=== PATIENT | male | born 1975 | race Caucasian/White ===

== ENCOUNTER 2021-03-14 10:40 | Outpatient (REF) | payer OTHER, SELFPAY ==
[2021-03-14 10:51] LABS: MANUAL DIFF FLAG NO
[2021-03-14 11:16] LABS: Basophils Percent Auto 0.4 % (0-2); Eosinophils Absolute Auto 0.1 X10*3/uL (0.0-0.4); Eosinophils Percent Auto 1.6 % (0-4); Hemoglobin 14.6 g/dl (14.0-18.0); Imm Gran Abs Auto 0.01 X10*3/uL (0.00-0.03); Imm Gran Pct Auto 0.2 % (0.0-0.4); Lymphocytes Absolute Auto 1.7 X10*3/uL (1.2-4.9); Lymphocytes Percent Auto 30.5 % (20-40); Mean Corpuscular Hemoglobin 29.8 pg (27.0-33.0); Mean Corpuscular Volume 87.8 fL (80-98); Mean Platelet Volume 10.7 fL (9.4-12.4); Monocytes Absolute Auto 0.4 X10*3/uL (0.1-1.2); Monocytes Percent Auto 6.3 % (2-11); Neutrophils Absolute Auto 3.4 X10*3/uL (2.0-8.3); Platelet Count 241 X10*3/uL (160-400); Red Cell Distribution Width 12.4 % (11.0-16.0); White Blood Count 5.5 X10*3/uL (4.8-10.8)
[2021-03-14 11:21] LABS: Glucose Urine UA NEG (NEG); Leukocyte Esterase Urine NEG (NEG); Nitrite Urine NEG (NEG); Urine Blood NEG (NEG); Urine Ketones NEG (NEG); Urine Protein NEG (NEG-TRACE)
[2021-03-14 11:22] LABS: Appearance Urine CLEAR; Color Urine YELLOW
[2021-03-14 12:10] LABS: Alanine Aminotransferase 12 U/L (0-40); Albumin Level 4.5 g/dL (3.5-5.0); Alkaline Phosphatase 51 U/L (39-117); Anion Gap 12 (12-20); Aspartate Amino Transferase 21 U/L (5-37); Bilirubin Total 1.5 mg/dL (0.0-1.0); Blood Urea Nitrogen 24 mg/dL (9-16); Calcium 9.2 mg/dL (8.4-10.2); Carbon Dioxide 27 mmol/L (22-29); Chloride 105 mmol/L (96-108); Cholesterol 170 mg/dL; Estimated Glomerular Filt Rate > 60; Glucose Fasting 90 mg/dL (60-99); HDL Cholesterol 45 mg/dL; LDL Cholesterol Calculated 111 mg/dl; Potassium 3.8 mmol/L (3.3-5.1); Sodium 140 mmol/L (135-145); Triglycerides 71 mg/dL
[2021-03-14 12:12] LABS: PSA,Total (Free>4and<10) 0.25 ng/mL (0.00-4.00)
== END 2021-03-14 10:41 | disposition home or self-care (01) ==
LOC: HO.LNP 10:40
PROVIDERS: PCP Internal Medicine; Visit Provider Internal Medicine
DX: Z00.00 Encounter for general adult medical examination without abnormal findings (principal); Z12.5 Encounter for screening for malignant neoplasm of prostate
CPT/HCPCS: 80053; 80061; 81003; 84153; 85025

== ENCOUNTER 2021-09-22 10:33 | Outpatient (REF) | payer OTHER, SELFPAY ==
[2021-09-22 11:11] LABS: Blood Urea Nitrogen 24 mg/dL (9-16); Estimated Glomerular Filt Rate > 60
== END 2021-09-22 10:34 | disposition home or self-care (01) ==
LOC: HO.LNP 10:33
PROVIDERS: Visit Provider Internal Medicine
DX: R79.9 Abnormal finding of blood chemistry, unspecified (principal)
CPT/HCPCS: 82565; 84520

== ENCOUNTER 2022-03-20 11:48 | Outpatient (REF) | payer OTHER, SELFPAY ==
[2022-03-20 11:52] LABS: MANUAL DIFF FLAG NO
[2022-03-20 12:09] LABS: Appearance Urine CLEAR; Basophils Absolute Auto 0.1 X10*3/uL (0.0-0.2); Basophils Percent Auto 0.9 % (0-2); Color Urine YELLOW; Eosinophils Absolute Auto 0.1 X10*3/uL (0.0-0.4); Eosinophils Percent Auto 1.6 % (0-4); Glucose Urine UA NEG (NEG); Hematocrit 41.8 % (42.0-52.0); Hemoglobin 14.1 g/dl (14.0-18.0); Imm Gran Abs Auto 0.01 X10*3/uL (0.00-0.03); Imm Gran Pct Auto 0.2 % (0.0-0.4); Leukocyte Esterase Urine NEG (NEG); Lymphocytes Absolute Auto 1.9 X10*3/uL (1.2-4.9); Lymphocytes Percent Auto 34.5 % (20-40); Mean Corpuscular HGB Conc 33.7 g/dl (31.0-36.0); Mean Corpuscular Hemoglobin 29.5 pg (27.0-33.0); Mean Corpuscular Volume 87.4 fL (80.0-98.0); Mean Platelet Volume 10.7 fL (9.4-12.4); Monocytes Absolute Auto 0.5 X10*3/uL (0.1-1.2); Monocytes Percent Auto 8.6 % (2-11); Neutrophils Percent Auto 54.2 % (45-73); Nitrite Urine NEG (NEG); PH 6.5 (5.0-8.0); Platelet Count 240 X10*3/uL (160-400); Red Blood Count 4.78 X10*6/uL (4.60-5.80); Red Cell Distribution Width 12.7 % (11.0-16.0); Urine Blood NEG (NEG); Urine Ketones NEG (NEG); Urine Protein NEG (NEG-TRACE); White Blood Count 5.5 X10*3/uL (4.8-10.8)
[2022-03-20 12:41] LABS: RBC Urine 0 /HPF (0); Squamous Epithelial Cell Urine TRACE /LPF; WBC Urine 0 /HPF (0-4)
[2022-03-20 12:56] LABS: Alanine Aminotransferase 16 U/L (0-40); Albumin Level 4.4 g/dL (3.5-5.0); Alkaline Phosphatase 58 U/L (39-117); Anion Gap 11 (12-20); Aspartate Amino Transferase 21 U/L (5-37); Bilirubin Total 1.1 mg/dL (0.0-1.0); Blood Urea Nitrogen 24 mg/dL (9-16); Calcium 8.9 mg/dL (8.4-10.2); Carbon Dioxide 27 mmol/L (22-29); Chloride 108 mmol/L (96-108); Cholesterol 149 mg/dL; Estimated Glomerular Filt Rate > 60; Glucose Fasting 102 mg/dL (60-99); HDL Cholesterol 43 mg/dL; LDL Cholesterol Calculated 84 mg/dl; Potassium 3.7 mmol/L (3.3-5.1); Sodium 142 mmol/L (135-145); Total Protein 6.8 g/dL (6.5-8.0); Triglycerides 110 mg/dL
[2022-03-20 13:02] LABS: PSA,Total (Free>4and<10) 0.27 ng/mL (0.00-4.00)
== END 2022-03-20 11:49 | disposition home or self-care (01) ==
LOC: HO.LNP 11:48
PROVIDERS: PCP Internal Medicine; Visit Provider Internal Medicine
DX: Z00.00 Encounter for general adult medical examination without abnormal findings (principal); Z12.5 Encounter for screening for malignant neoplasm of prostate
CPT/HCPCS: 80053; 80061; 81001; 84153; 85025

== ENCOUNTER 2023-03-15 11:49 | Outpatient (REF) | payer OTHER, SELFPAY ==
[2023-03-15 11:53] LABS: MANUAL DIFF FLAG NO
[2023-03-15 12:09] LABS: Basophils Percent Auto 0.7 % (0-2); Eosinophils Absolute Auto 0.1 X10*3/uL (0.0-0.4); Eosinophils Percent Auto 1.2 % (0-4); Hemoglobin 15.2 g/dl (14.0-18.0); Imm Gran Abs Auto 0.01 X10*3/uL (0.00-0.03); Imm Gran Pct Auto 0.2 % (0.0-0.4); Lymphocytes Absolute Auto 1.8 X10*3/uL (1.2-4.9); Lymphocytes Percent Auto 31.2 % (20-40); Mean Corpuscular HGB Conc 33.8 g/dl (31.0-36.0); Mean Corpuscular Hemoglobin 29.3 pg (27.0-33.0); Mean Corpuscular Volume 86.9 fL (80.0-98.0); Mean Platelet Volume 10.6 fL (9.4-12.4); Monocytes Absolute Auto 0.4 X10*3/uL (0.1-1.2); Monocytes Percent Auto 6.9 % (2-11); Neutrophils Absolute Auto 3.4 x10*3/uL (2.0-8.3); Neutrophils Percent Auto 59.8 % (45-73); Platelet Count 242 X10*3/uL (160-400); Red Blood Count 5.18 X10*6/uL (4.60-5.80); Red Cell Distribution Width 12.6 % (11.0-16.0); White Blood Count 5.7 X10*3/uL (4.8-10.8)
[2023-03-15 12:11] LABS: Appearance Urine Clear; Color Urine Yellow; Glucose Urine UA Negative (Negative); Leukocyte Esterase Urine Negative (Negative); Nitrite Urine Negative (Negative); PH 6.5 (5.0-9.0); Specific Gravity - Urine 1.025 (1.005-1.025); Urine Blood Negative (Negative); Urine Ketones Negative (Negative); Urine Protein Negative (Neg-Trace)
[2023-03-15 12:13] LABS: Bacteria Urine None Seen (None Seen); Hyaline Casts Urine 0-2 /LPF (0-2); RBC Urine 0-2 /HPF (0-2); Squamous Epithelial Cell Urine 0-2 /HPF (0-2); WBC Urine 0-5 /HPF (0-5)
[2023-03-15 12:20] LABS: Alanine Aminotransferase 14 U/L (0-40); Albumin Level 4.4 g/dL (3.5-5.0); Alkaline Phosphatase 57 U/L (39-117); Anion Gap 10 (12-20); Aspartate Amino Transferase 18 U/L (5-37); Bilirubin Total 1.5 mg/dL (0.0-1.0); Blood Urea Nitrogen 24 mg/dL (9-16); Calcium 9.8 mg/dL (8.4-10.2); Carbon Dioxide 29 mmol/L (22-29); Chloride 108 mmol/L (96-108); Cholesterol 170 mg/dL; Estimated Glomerular Filt Rate > 60; Glucose Fasting 95 mg/dL (60-99); HDL Cholesterol 44 mg/dL; LDL Cholesterol Calculated 107 mg/dl; Sodium 143 mmol/L (135-145); Total Protein 6.8 g/dL (6.5-8.0); Triglycerides 95 mg/dL
== END 2023-03-15 11:50 | disposition home or self-care (01) ==
LOC: HO.LNP 11:49
PROVIDERS: Visit Provider Internal Medicine
DX: Z00.00 Encounter for general adult medical examination without abnormal findings (principal); Z12.5 Encounter for screening for malignant neoplasm of prostate
CPT/HCPCS: 80053; 80061; 81001; 84153; 85025

== ENCOUNTER 2023-04-24 08:48 | Outpatient (REF) | payer OTHER, SELFPAY ==
--- NOTE | ~2023-04-24 | XR_ITS ---
EXAMINATION: XR LUMBOSACRAL SPINE CLINICAL INFORMATION: Degenerative disc changes. COMPARISON: None available. TECHNIQUE: Three views of the lumbosacral spine. FINDINGS: There is normal lumbar lordosis. There is mild levoscoliosis of the lumbar spine. The vertebral heights, alignment and disc heights are normal. No visible acute fracture, lytic or sclerotic process seen. The soft tissues are normal. XR/XR lumbar spine 2-3V IMPRESSION: Mild levoscoliosis which could be positional or spasm, otherwise unremarkable lumbar spine exam.
== END 2023-04-24 08:49 | disposition home or self-care (01) ==
LOC: HO.XRAY 08:48
PROVIDERS: PCP Internal Medicine; Visit Provider Physical Medicine & Rehabilitation
DX: M51.36 Other intervertebral disc degeneration, lumbar region (principal)
CPT/HCPCS: 72100

== ENCOUNTER 2023-08-29 11:08 | Outpatient (REF) | payer OTHER, SELFPAY ==
--- NOTE | ~2023-08-29 | US_ITS ---
EXAMINATION: US VENOUS ULTRASOUND WITH DOPPLER LOWER EXTREMITY, BILATERAL CLINICAL INFORMATION: Edema COMPARISON: None available. TECHNIQUE: Ultrasound of the deep veins is performed from the hip to the calf with compression sonography and color and pulse Doppler assessment. Spectral analysis with color-flow imaging is performed. FINDINGS: RIGHT: There is normal venous compression and respiratory variation and augmented flow. The visualized common femoral vein, superficial femoral vein, profunda femoral vein, popliteal vein, and the trifurcation region shows no evidence of deep venous thrombosis. LEFT: There is normal venous compression and respiratory variation and augmented flow. The visualized common femoral vein, superficial femoral vein, profunda femoral vein, popliteal vein, and the trifurcation region shows no evidence of deep venous thrombosis. Multiple varicosities are seen bilaterally at the area of swelling in the ankles. Vascular flow is noted within the varicosities. No reflux seen. 3.4 x 0.9 x 2.4 cm benign-appearing lymph node is seen in the right groin. US/US venous duplex LE BI IMPRESSION: No DVT demonstrated in the right and left lower extremity.
[2023-08-29 14:34] LABS: Blood Urea Nitrogen 21 mg/dL (9-16); Estimated Glomerular Filt Rate > 60
== END 2023-08-29 11:09 | disposition home or self-care (01) ==
LOC: HO.US 11:08
PROVIDERS: PCP Internal Medicine; Visit Provider Internal Medicine
DX: R60.0 Localized edema (principal)
CPT/HCPCS: 36415; 82565; 84520; 93970

== ENCOUNTER → 2023-10-17 15:41 | Outpatient (BNVA) | payer SELFPAY | PROVIDERS: PCP Internal Medicine; Visit Provider Physician Assistant | DX: Z02.79 Encounter for issue of other medical certificate (principal) ==

== ENCOUNTER 2023-12-18 04:38 | Emergency (ER) | payer OTHER, SELFPAY ==
--- NOTE | ~2023-12-18 | XR_ITS ---
EXAMINATION: XR ABDOMEN KUB CLINICAL INDICATION: Abdominal pain COMPARISON: None available. TECHNIQUE: AP view of the abdomen. FINDINGS: Nonspecific bowel pattern with few prominent right mid abdominal small bowel loops. Solid visceral outlines are obscured. 2 cm calcific density in the right upper quadrant likely gallstone. Phleboliths. Bony structures are intact. XR/XR KUB IMPRESSION: Nonspecific bowel pattern. Probable 2 cm gallstone.
[2023-12-18 04:45] VITALS: BP 110/78; PULSE 65; RESP 20; TEMP 36.2; O2SAT 95; BMI 31.9
[2023-12-18 05:10] LABS: MANUAL DIFF FLAG NO
[2023-12-18 05:11] LABS: Basophils Percent Auto 0.4 % (0-2); Eosinophils Absolute Auto 0.1 X10*3/uL (0.0-0.4); Hemoglobin 14.9 g/dl (14.0-18.0); Imm Gran Abs Auto 0.03 X10*3/uL (0.00-0.03); Imm Gran Pct Auto 0.4 % (0.0-0.4); Lymphocytes Absolute Auto 1.2 X10*3/uL (1.2-4.9); Lymphocytes Percent Auto 15.4 % (20-40); Mean Corpuscular HGB Conc 34.7 g/dl (31.0-36.0); Mean Corpuscular Hemoglobin 29.2 pg (27.0-33.0); Mean Corpuscular Volume 84.3 fL (80.0-98.0); Monocytes Absolute Auto 0.4 X10*3/uL (0.1-1.2); Monocytes Percent Auto 5.8 % (2-11); Neutrophils Absolute Auto 5.9 x10*3/uL (2.0-8.3); Platelet Count 238 X10*3/uL (160-400); Red Cell Distribution Width 12.7 % (11.0-16.0); White Blood Count 7.6 X10*3/uL (4.8-10.8)
[2023-12-18 05:24] LABS: Alanine Aminotransferase 18 U/L (0-40); Albumin Level 4.2 g/dL (3.5-5.0); Alkaline Phosphatase 67 U/L (39-117); Anion Gap 11 (12-20); Aspartate Amino Transferase 19 U/L (5-37); Bilirubin Direct 0.2 mg/dL (0.0-0.5); Bilirubin Total 0.8 mg/dL (0.0-1.0); Blood Urea Nitrogen 25 mg/dL (9-16); Calcium 9.4 mg/dL (8.4-10.2); Carbon Dioxide 25 mmol/L (22-29); Chloride 109 mmol/L (96-108); Creatinine Clr Calc Pharmacy 108.2; Estimated Glomerular Filt Rate > 60; Glucose Random 129 mg/dL (60-115); Lipase 23 U/L (8-78); Potassium 3.9 mmol/L (3.3-5.1); Sodium 141 mmol/L (135-145)
--- NOTE | 2023-12-18 08:11 | ED_ITS ---
HPI - Abdominal Pain General Chief Complaint: Abdominal Pain Stated Complaint: stomach pain Time Seen by Provider: 12/18/23 08:10 Source: patient Mode of arrival: ambulatory Limitations: no limitations History of Present Illness HPI narrative: last night the patient had abdominal pain that was unrelieved, denies fever, vomiting, diarrhea, constipation, dysuria MD elicited complaint: abdominal pain Onset (ago): hour(s) Pain Consistency: constant Location: diffuse Related Data Previous Rx's Medication Instructions Recorded psyllium seed (sugar) oral powder 1 tsp PO DAILY #1,254 grams 12/18/23 (Metamucil (sugar) oral powder) Allergies Allergy/AdvReac Type Severity Reaction Status Date / Time No Known Allergies Allergy Verified 12/18/23 04:51 Review of Systems Review of Systems Yes all other systems are reviewed and are negative Denies Sensory deficit (Neuro) [facility] Social History Social History Advance Directives: Yes Advance Directives Information Provided: No Advance Directives on File: No Physical Exam ED Vital Signs: Vital Signs - 24 hr 12/18/23 04:45 12/18/23 08:45 Temperature 97.2 F Pulse Rate 65 60 Respiratory Rate 20 14 Blood Pressure 110/78 110/64 Pulse Oximetry 95 97 Oxygen Delivery Method Room Air Room Air BMI result Body Mass Index 31.9 Const General: healthy appearing Nutritional Appearance: average body habitus Orientation/consciousness: oriented to person and patient oriented x3 Limitations: no limitations HENMT Head: Yes normal to inspection Ears: external ears normal General nose exam: Normal external nose present Mouth: Normal oral and palatal mucosa present and oropharynx normal Throat: Yes posterior oropharynx normal Eyes General: appearance normal, both eyes and all related structures Neck Neck: Yes normal visual inspection Chest Chest palpation & inspection: normal inspection of the chest Resp Auscultation: clear to auscultation bilaterally Cardio Jugular venous distension: no JVD Rate: regular rate Rhythm: regular rhythm Heart sounds: S1 normal heart sound present and S2 normal heart sound present GI Inspection: Yes normal to inspection Palpation (GI): Soft to palpation, nontender and No hepatosplenomegaly present Auscultation: normal bowel sounds General: Yes no CVA tenderness Back/Spine/Pelvis Back: no CVA tenderness Skin General skin exam: no rashes or lesions noted Neuro General: oriented to person and patient oriented x3 Cranial nerves: Yes CN's II-XII intact bilaterally Motor exam (neuro): 5/5 motor strength present throughout Sensory Exam: No Sensory deficit (Neuro) Extrem General: Yes normal to inspection Psych Appearance: grossly normal Course Reevaluation(s) Reevaluation #1: patient with soft abdomen, xray shows significant stool burden, will dc home Time: 08:46 Medical Decision Making Differential Diagnosis Differential Diagnoses: The differential diagnosis associated with the presentation includes (appendicitis, biliary colic, GERD, constipation were all considered) Admission/Observation Consideration of admission/observation: Escalation of care including admission/observation considered (upon arrival admission was considered) Lab Data 12/18/23 05:05 12/18/23 05:05 Labs: Lab Results 12/18/23 12/18/23 Range/Units 05:05 09:06 WBC 7.6 (4.8-10.8) X10*3/uL RBC 5.10 (4.60-5.80) X10*6/uL Hgb 14.9 (14.0-18.0) g/dl Hct 43.0 (42.0-52.0) % MCV 84.3 (80.0-98.0) fL MCH 29.2 (27.0-33.0) pg MCHC 34.7 (31.0-36.0) g/dl RDW 12.7 (11.0-16.0) % Plt Count 238 (160-400) X10*3/uL MPV 10.0 (9.4-12.4) fL Immature Gran % (Auto) 0.4 (0.0-0.4) % Neut % (Auto) 77.0 H (45-73) % Lymph % (Auto) 15.4 L (20-40) % [place] % (Auto) 5.8 (2-11) % Eos % (Auto) 1.0 (0-4) % Baso % (Auto) 0.4 (0-2) % Lymph # (Auto) 1.2 (1.2-4.9) X10*3/uL [place] # (Auto) 0.4 (0.1-1.2) X10*3/uL Eos # (Auto) 0.1 (0.0-0.4) X10*3/uL Baso # (Auto) 0.0 (0.0-0.2) X10*3/uL Abs Immat Gran (auto) 0.03 (0.00-0.03) X10*3/uL Absolute Neuts (auto) 5.9 (2.0-8.3) x10*3/uL Absolute Nucleated RBC 0.000 (0.0-0.012) X10*3/uL Nucleated RBC % (auto) 0.0 (0.0-0.2) /100WBC Sodium 141 (135-145) mmol/L Potassium 3.9 (3.3-5.1) mmol/L Chloride 109 H (96-108) mmol/L Carbon Dioxide 25 (22-29) mmol/L Anion Gap 11 L (12-20) BUN 25 H (9-16) mg/dL Creatinine 1.12 (0.5-1.4) mg/dL Estim Creat Clear Calc 108.2 Estimated GFR > 60 Random Glucose 129 H (60-115) mg/dL Calcium 9.4 (8.4-10.2) mg/dL Total Bilirubin 0.8 (0.0-1.0) mg/dL Direct Bilirubin 0.2 (0.0-0.5) mg/dL AST 19 (5-37) U/L ALT 18 (0-40) U/L Alkaline Phosphatase 67 (39-117) U/L Total Protein 7.0 (6.5-8.0) g/dL Albumin 4.2 (3.5-5.0) g/dL Lipase 23 (8-78) U/L Urine Color Yellow Urine Appearance Clear Urine pH 6.5 (5.0-9.0) Ur Specific [place] >= 1.030 H (1.005-1.025) Urine Protein Negative (Neg-Trace) mg/dL Urine Glucose (UA) Negative (Negative) mg/dL Urine Ketones Negative (Negative) mg/dL Urine Blood Negative (Negative) Urine Nitrite Negative (Negative) Ur Leukocyte Esterase Negative (Negative) Independent Interpretation I performed an independent interpretation of an: Plain X-Ray (KUB: increased stool burden) Tests considered The following testing was considered but not selected: CT of abd considered but patient with soft abdomen and no elevated WBC Prescription Management I considered prescription management with: Antibiotic (no evidence of UTI) Discharge Plan Discharge Clinical Impression: Constipation Patient Disposition: Home, Self-Care Instructions: Constipation (ED) Prescriptions: New Metamucil (sugar) Powder 1 tsp PO DAILY Qty: 1254 0RF
[2023-12-18 08:45] VITALS: BP 110/64; PULSE 60; RESP 14; O2SAT 97
[2023-12-18 09:14] LABS: Appearance Urine Clear; Color Urine Yellow; Glucose Urine UA Negative (Negative); Leukocyte Esterase Urine Negative (Negative); Nitrite Urine Negative (Negative); PH 6.5 (5.0-9.0); Specific Gravity - Urine >= 1.030 (1.005-1.025); Urine Blood Negative (Negative); Urine Ketones Negative (Negative); Urine Protein Negative (Neg-Trace)
[2023-12-18 10:32] VITALS: BP 143/71; PULSE 76; RESP 18; O2SAT 98
[2023-12-18 10:35] VITALS: BP 143/71; PULSE 76; RESP 18; TEMP 36.6; O2SAT 98
== END 2023-12-18 10:36 | disposition home or self-care (01) ==
PROVIDERS: Emergency Provider Emergency Medicine; PCP Internal Medicine
DX: K59.00 Constipation, unspecified (principal)
CPT/HCPCS: 36415; 74018; 80048; 80076; 81003; 83690; 85025; 99283; 99284

== ENCOUNTER 2024-03-03 20:51 | Emergency (ER) | payer OTHER, SELFPAY ==
--- NOTE | 2024-03-03 | ECG_ITS ---
Test Reason : ABD PAIN Blood Pressure : / mmHG Vent. Rate : 053 BPM Atrial Rate : 053 BPM P-R Int : 136 ms QRS Dur : 102 ms QT Int : 416 ms P-R-T Axes : -06 045 044 degrees QTc Int : 390 ms Sinus bradycardia Otherwise normal ECG No previous ECGs available Referred By: Generic ED Physician Electronically Signed By:Krzysztof Chong
--- NOTE | ~2024-03-03 | CT_ITS ---
EXAMINATION: CT ABDOMEN AND PELVIS WITH CONTRAST CLINICAL INFORMATION: Periumbilical pain. COMPARISON: CT abdomen pelvis 10/17/2007 TECHNIQUE: Multidetector volumetric images were obtained from the superior aspect of the liver through the pubic symphysis following administration 85 mL of Omnipaque 350 intravenous contrast. Sagittal and coronal reformatted images were obtained on the technologist's workstation. Oral contrast: No This CT examination was performed using dose optimization techniques as appropriate, variously including the following: *Automated exposure control *Adjustment of mA and/or kV according to patient size (this includes techniques or standardized protocols for targeted exams where dose is matched to indication/reason for exam; i.e. extremities or head) *Use of iterative reconstruction technique DLP: 932 mGy-cm FINDINGS: LUNG BASES: There is bibasilar atelectasis. Heart size is normal. LIVER, GALLBLADDER, AND BILIARY TREE: The liver is normal in size, shape, and attenuation. No focal hepatic lesion or biliary ductal dilatation is present. The gallbladder is distended with a large round 1.5 cm stone in the neck of the gallbladder. There is no gallbladder wall thickening or светлана gallbladder fluid collection. PANCREAS: Unremarkable. SPLEEN: Unremarkable. ADRENAL GLANDS: Unremarkable. KIDNEYS AND URETERS: The kidneys are normal in size, shape, and attenuation. No hydronephrosis, hydroureter, or calculi seen. No perinephric stranding. There is bilateral peripelvic renal cysts, less likely UPJ obstructions BLADDER: Unremarkable. GASTROINTESTINAL TRACT: There is moderate scattered stool and gas seen in colon without significant distention. The small bowel loops are normal caliber with scattered stool in distal ileum. There is no mural thickening or fat infiltration in these segments. Rest of the small bowel segments are normal. Appendix is not visualized. The stomach is distended with recently ingested food. There is no free fluid or free air. No inflammatory process seen. ABDOMINAL WALL: No significant hernia is appreciated. LYMPH NODES: Normal. VASCULAR: Unremarkable. PELVIC VISCERA: Unremarkable. OSSEOUS STRUCTURES: Unremarkable. CT/CT abdomen pelvis w IV con IMPRESSION: 1.5 cm gallstone in the neck of the gallbladder but no wall thickening or surrounding fat infiltration. Mild constipation. There is scattered stool seen in the distal ileum but no mural thickening or fat stranding. Bilateral peripelvic renal cysts. Hydronephrosis considered less likely. No evidence of hernia. Fleischner guidelines were followed.
[2024-03-03 21:03] VITALS: BP 134/89; PULSE 62; RESP 15; TEMP 36.7; O2SAT 98; BMI 32.0
[2024-03-03 21:24] LABS: MANUAL DIFF FLAG NO
[2024-03-03 21:25] LABS: Basophils Absolute Auto 0.1 X10*3/uL (0.0-0.2); Basophils Percent Auto 0.8 % (0-2); Eosinophils Absolute Auto 0.1 X10*3/uL (0.0-0.4); Eosinophils Percent Auto 1.7 % (0-4); Hematocrit 42.5 % (42.0-52.0); Imm Gran Abs Auto 0.02 X10*3/uL (0.00-0.03); Imm Gran Pct Auto 0.3 % (0.0-0.4); Lymphocytes Absolute Auto 1.5 X10*3/uL (1.2-4.9); Lymphocytes Percent Auto 25.2 % (20-40); Mean Corpuscular HGB Conc 35.3 g/dl (31.0-36.0); Mean Corpuscular Hemoglobin 29.7 pg (27.0-33.0); Mean Corpuscular Volume 84.2 fL (80.0-98.0); Mean Platelet Volume 9.6 fL (9.4-12.4); Monocytes Absolute Auto 0.5 X10*3/uL (0.1-1.2); Monocytes Percent Auto 8.1 % (2-11); Neutrophils Absolute Auto 3.9 x10*3/uL (2.0-8.3); Neutrophils Percent Auto 63.9 % (45-73); Platelet Count 242 X10*3/uL (160-400); Red Blood Count 5.05 X10*6/uL (4.60-5.80); Red Cell Distribution Width 12.8 % (11.0-16.0); White Blood Count 6.1 X10*3/uL (4.8-10.8)
--- NOTE | 2024-03-03 21:34 | ED_ITS ---
HPI - Abdominal Pain General Chief Complaint: Abdominal Pain Stated Complaint: abd pain Time Seen by Provider: 03/03/24 21:26 Source: patient Mode of arrival: ambulatory Limitations: no limitations History of Present Illness ED Provider: Dr. Nereida Steen HPI narrative: Patient comes to the emergency room complaining of periumbilical pain that started approximately 8 hours ago. Patient states it is localized, nonradiating. Patient has had couple episodes of vomiting, no diarrhea, no fever chills, no chest pain or shortness of breath, no URI or UTI symptoms. Patient was seen here approximately 2 months ago, was diagnosed with constipation. Related Data Previous Rx's ?Medication ?Instructions ?Recorded psyllium seed (sugar) oral powder 1 tsp PO DAILY #1,254 grams 12/18/23 (Metamucil (sugar) oral powder) ketorolac 10 mg tablet 10 mg PO Q8H PRN pain 4 days #12 03/03/24 tabs ondansetron HCl 4 mg tablet 4 mg PO Q6H PRN nausea and 03/03/24 vomiting #14 tabs tramadol 50 mg tablet 50 mg PO BID PRN pain #6 tabs 03/03/24 Allergies Allergy/AdvReac Type Severity Reaction Status Date / Time No Known Allergies Allergy Verified 03/03/24 21:07 Review of Systems Review of Systems Constitutional : No Weight loss, No Fever, No Chills, No Night Sweats, No Fatigue, No Malaise ENT/Mouth : No Hearing loss, No Ear Pain, No Nasal Congestion, No Sinus Pain, No Hoarseness, No sore throat, No Rhinorrhea, No Swallowing Difficulty Eyes: No Eye Pain, No Swelling, No Redness, No Foreign Body, No Discharge, No Vision Changes Cardiovascular : No Chest Pain, No SOB, No Dyspnea on Exertion, No Orthopnea, No Edema, No Palpitations Respiratory : No Cough, No Sputum, No Wheezing, No Smoke Exposure, No Dyspnea Gastrointestinal : Complaining of nausea and vomiting, no diarrhea, complaining of periumbilical pain Genitourinary : no irregular bleeding, No Dysuria, No Urinary Frequency, No Hematuria, No Urinary Incontinence, No Urgency, No Flank Pain, No Urinary Flow Changes, No Hesitancy Musculoskeletal : No joint pain, No Myalgias, No Joint Swelling Skin : No Skin Lesions, No rash Neuro : No Weakness, No Numbness, No Paresthesias, No Loss of Consciousness, No Dizziness, No Headache Psych : No Anxiety/Panic, No Depression, No SI/HI/AH/VH, No Social Issues, Heme/Lymph: No Bruising, No Bleeding,No Lymphadenopathy Endocrine : No Polyuria, No Polydipsia, No Temperature Intolerance [facility] Social History Social History Alcohol intake: current Alcohol type: beer and wine Smoked in Last 30 Days: No Use of substances other than those prescribed or required for medical reasons: No Advance Directives: No Advance Directives Information Provided: No Physical Exam ED Vital Signs: Vital Signs - 24 hr 03/03/24 21:03 03/03/24 22:04 Temperature 98.1 F 97.5 F Pulse Rate 62 79 Respiratory Rate 15 16 Blood Pressure 134/89 123/73 Pulse Oximetry 98 98 Oxygen Delivery Method Room Air Room Air BMI result Body Mass Index 32.0 Const Other: Appearance: Alert. Oriented X3. No acute distress. Well-appearing Eyes: Pupils equal, round and reactive to light. ENT: Pharynx normal. Neck: Normal inspection. Neck supple. No lymph nodes noted. No crepitus CVS: Normal heart rate and rhythm. Pulses normal. Normal S1 and S2 Respiratory: No respiratory distress. Breath sounds normal. No Wheezing. No rales Abdomen: Soft , negative Kovacs sign, mild pain to palpation over the periumbilical area, no rebound or guarding, No rigidity. No distention. Skin: Skin warm and dry. Normal skin color. Normal skin turgor. Extremities: No lower extremity edema. No Lacerations. No Rash Neuro: Oriented X 3. No motor deficit. No sensory deficit. Moving all extremities. No slurred speech. CN 2 through 12 grossly intact Psych: calm, cooperative, normal affect Course Course Course Narrative: -all of patient's labs pending - CT scan pending -patient given 1 dose of Zofran and ketorolac Medical Decision Making Medical Decision Making [facility] Narrative: -my interpretation of labs: Chemistry at baseline, LFTs within normal limits, lipase normal hematology within normal limits -my interpretation of CT scan: There is a large approximately 2 cm gallstone, no obvious gallbladder inflammation -patient is comfortable in bed, no pain at this time, no nausea. -I discussed with the patient the options of getting admitted if the pain bearable and unable to tolerate p.o., then we would consult surgery but does not mean he would get a cholecystectomy immediately. Also, I discussed with the patient the option of being discharged home since he is doing very well at this time with no pain no vomiting. Sending him home with pain medication and nausea medications, but needs to call surgery tomorrow to schedule an appointment as patient will likely need a cholecystectomy sooner than later -patient opted to be discharged with pain medications and he will call the surgery office tomorrow for a follow-up appointment and to discuss possible cholecystectomy Differential Diagnosis Differential Diagnoses: The differential diagnosis associated with the presentation includes (Cholecystitis, choledocholithiasis, constipation, SBO) Admission/Observation Consideration of admission/observation: Escalation of care including admission/observation considered (Admission was offered, patient preferred to be discharged home) Lab Data MDM Lab Attestation statement: I reviewed the patient's lab results. 03/03/24 21:18 03/03/24 21:18 Labs: Lab Results 03/03/24 Range/Units 21:18 WBC 6.1 (4.8-10.8) X10*3/uL RBC 5.05 (4.60-5.80) X10*6/uL Hgb 15.0 (14.0-18.0) g/dl Hct 42.5 (42.0-52.0) % MCV 84.2 (80.0-98.0) fL MCH 29.7 (27.0-33.0) pg MCHC 35.3 (31.0-36.0) g/dl RDW 12.8 (11.0-16.0) % Plt Count 242 (160-400) X10*3/uL MPV 9.6 (9.4-12.4) fL Immature Gran % (Auto) 0.3 (0.0-0.4) % Neut % (Auto) 63.9 (45-73) % Lymph % (Auto) 25.2 (20-40) % [place] % (Auto) 8.1 (2-11) % Eos % (Auto) 1.7 (0-4) % Baso % (Auto) 0.8 (0-2) % Lymph # (Auto) 1.5 (1.2-4.9) X10*3/uL [place] # (Auto) 0.5 (0.1-1.2) X10*3/uL Eos # (Auto) 0.1 (0.0-0.4) X10*3/uL Baso # (Auto) 0.1 (0.0-0.2) X10*3/uL Abs Immat Gran (auto) 0.02 (0.00-0.03) X10*3/uL Absolute Neuts (auto) 3.9 (2.0-8.3) x10*3/uL Absolute Nucleated RBC 0.000 (0.0-0.012) X10*3/uL Nucleated RBC % (auto) 0.0 (0.0-0.2) /100WBC Sodium 146 H (135-145) mmol/L Potassium 3.8 (3.3-5.1) mmol/L Chloride 111 H (96-108) mmol/L Carbon Dioxide 27 (22-29) mmol/L Anion Gap 12 (12-20) BUN 24 H (9-16) mg/dL Creatinine 1.35 (0.5-1.4) mg/dL Estim Creat Clear Calc 89.9 Estimated GFR 56 Random Glucose 107 (60-115) mg/dL Calcium 9.6 (8.4-10.2) mg/dL Total Bilirubin 0.9 (0.0-1.0) mg/dL AST 22 (5-37) U/L ALT 18 (0-40) U/L Alkaline Phosphatase 58 (39-117) U/L Total Protein 7.0 (6.5-8.0) g/dL Albumin 4.3 (3.5-5.0) g/dL Lipase 30 (8-78) U/L Independent Interpretation I performed an independent interpretation of an: CT Scan Radiology Impression Discussion of test interpretation with radiology: I have reviewed the radiologist's reading. Radiologist Impression: FINDINGS: LUNG BASES: There is bibasilar atelectasis. Heart size is normal. LIVER, GALLBLADDER, AND BILIARY TREE: The liver is normal in size, shape, and attenuation. No focal hepatic lesion or biliary ductal dilatation is present. The gallbladder is distended with a large round 1.5 cm stone in the neck of the gallbladder. There is no gallbladder wall thickening or светлнаа gallbladder fluid collection. PANCREAS: Unremarkable. SPLEEN: Unremarkable. ADRENAL GLANDS: Unremarkable. KIDNEYS AND URETERS: The kidneys are normal in size, shape, and attenuation. No hydronephrosis, hydroureter, or calculi seen. No perinephric stranding. There is bilateral peripelvic renal cysts, less likely UPJ obstructions BLADDER: Unremarkable. GASTROINTESTINAL TRACT: There is moderate scattered stool and gas seen in colon without significant distention. The small bowel loops are normal caliber with scattered stool in distal ileum. There is no mural thickening or fat infiltration in these segments. Rest of the small bowel segments are normal. Appendix is not visualized. The stomach is distended with recently ingested food. There is no free fluid or free air. No inflammatory process seen. ABDOMINAL WALL: No significant hernia is appreciated. LYMPH NODES: Normal. VASCULAR: Unremarkable. PELVIC VISCERA: Unremarkable. OSSEOUS STRUCTURES: Unremarkable. CT/CT abdomen pelvis w IV con IMPRESSION: 1.5 cm gallstone in the neck of the gallbladder but no wall thickening or surrounding fat infiltration. Mild constipation. There is scattered stool seen in the distal ileum but no mural thickening or fat stranding. Bilateral peripelvic renal cysts. Hydronephrosis considered less likely. No evidence of hernia. Fleischner guidelines were followed. Independent Historian Clinical information obtained from an independent historian. History obtained from or confirmed by: Spouse Medications Administered Discontinued Medications Generic Name Dose Route Start Last Admin Trade Name Freq PRN Reason Stop Dose Admin Sodium Chloride 1,000 mls @ 999 mls/hr 03/03/24 21:30 03/03/24 21:59 Ns IV 03/03/24 22:30 999 mls/hr .Q1H1M PEDRO PABLO Administration Iohexol 100 ml 03/03/24 21:56 03/03/24 21:57 Iohexol 350 Mg/Ml 100 Ml Infus..Btl IV 03/03/24 21:57 85 ml ONCE ONE Administration Ketorolac Tromethamine 30 mg 03/03/24 21:36 03/03/24 22:00 Ketorolac Tromethamine 30 Mg/Ml Vial IVPUSH 03/03/24 21:37 30 mg ONCE ONE Administration Ondansetron HCl 4 mg 03/03/24 21:25 03/03/24 21:59 Ondansetron Hcl 4 Mg/2 Ml Vial IVPUSH 03/03/24 21:26 4 mg ONCE ONE Administration Critical Care Time Critical Care Time Critical Care Time: Yes Total Critical Care Time: 45 Attestation: Choledocholithiasis Discharge Plan Discharge Clinical Impression: Choledocholithiasis Patient Disposition: Home, Self-Care Instructions: Gallstones (ED) Additional Instructions: Please follow-up with your primary care physician tomorrow. If you have any worsening or new symptoms, please return to the emergency room or call 911 Prescriptions: New ketorolac 10 mg tablet 10 mg PO Q8H PRN (Reason: pain) 4 Days Qty: 12 0RF Rx Instructions: maximum total duration of 5 days from all oral, intranasal, or parenteral formulations ondansetron HCl 4 mg tablet 4 mg PO Q6H PRN (Reason: nausea and vomiting) Qty: 14 0RF tramadol 50 mg tablet 50 mg PO BID PRN (Reason: pain) Qty: 6 0RF Rx Instructions: Use only if ketorolac does not alleviate the pain No Action Metamucil (sugar) Powder 1 tsp PO DAILY Qty: 1254 0RF Referrals: Castro Lindsay MD [Physician] - 03/04/24 Print Language: Thai
[2024-03-03 21:45] LABS: Alanine Aminotransferase 18 U/L (0-40); Albumin Level 4.3 g/dL (3.5-5.0); Alkaline Phosphatase 58 U/L (39-117); Anion Gap 12 (12-20); Aspartate Amino Transferase 22 U/L (5-37); Bilirubin Total 0.9 mg/dL (0.0-1.0); Blood Urea Nitrogen 24 mg/dL (9-16); Calcium 9.6 mg/dL (8.4-10.2); Carbon Dioxide 27 mmol/L (22-29); Chloride 111 mmol/L (96-108); Creatinine Clr Calc Pharmacy 89.9; Estimated Glomerular Filt Rate 56; Glucose Random 107 mg/dL (60-115); Lipase 30 U/L (8-78); Potassium 3.8 mmol/L (3.3-5.1); Sodium 146 mmol/L (135-145)
[2024-03-03] MEDS: iohexoL 350 MG/ML 100 ML INFUS..BTL IV (21:57)
[2024-03-03] MEDS: 0.9 % Sodium Chloride 1,000 ML 999 ML IV (21:59)
[2024-03-03] MEDS: ondansetron HCL 4 MG/2 ML VIAL IVPUSH (21:59)
[2024-03-03] MEDS: Ketorolac Tromethamine 30 MG/ML VIAL IVPUSH (22:00)
[2024-03-03 22:04] VITALS: BP 123/73; PULSE 79; RESP 16; TEMP 36.4; O2SAT 98
[2024-03-03 22:36] LABS: Appearance Urine Clear; Color Urine Yellow; Glucose Urine UA Negative (Negative); Leukocyte Esterase Urine Negative (Negative); Nitrite Urine Negative (Negative); Specific Gravity - Urine >= 1.030 (1.005-1.025); Urine Blood Negative (Negative); Urine Ketones Negative (Negative); Urine Protein Negative (Neg-Trace)
[2024-03-03 22:42] LABS: Bacteria Urine None Seen (None Seen); Hyaline Casts Urine 0-2 /LPF (0-2); RBC Urine 0-2 /HPF (0-2); Squamous Epithelial Cell Urine 0-2 /HPF (0-2); WBC Urine 0-5 /HPF (0-5)
[2024-03-03 23:39] VITALS: BP 106/66; PULSE 67; RESP 16; TEMP 36.5; O2SAT 95
[2024-03-03 23:40] VITALS: BP 106/66; PULSE 67; RESP 16; TEMP 36.5; O2SAT 95
== END 2024-03-03 23:41 | disposition home or self-care (01) ==
PROVIDERS: Emergency Provider Emergency Medicine; PCP Internal Medicine
DX: K80.20 Calculus of gallbladder without cholecystitis without obstruction (principal); R10.9 Unspecified abdominal pain
CPT/HCPCS: 36415; 74177; 80053; 81001; 83690; 85025; 93005; 96361; 96374; 96375; 99284; 99285; J1885; J2405; Q9967

== ENCOUNTER → 2024-03-03 21:17 | Outpatient (BNV) | payer OTHER, SELFPAY | PROVIDERS: Emergency Provider Emergency Medicine; PCP Internal Medicine; Visit Provider Internal Medicine Cardiovascular Disease | DX: R00.1 Bradycardia, unspecified (principal) | CPT/HCPCS: 93010 ==

== ENCOUNTER 2024-03-05 08:21 | Outpatient (AMB) | payer OTHER, SELFPAY ==
[2024-03-05 08:28] VITALS: BMI 32.0
--- NOTE | 2024-03-05 08:28 | A.OFFVIS_ITS ---
Vital Signs 03/05/24 08:28 Height 6 ft 3 in Weight 256 lb 2.834 oz BMI 32.0 Intake Visit Reasons: Abdominal pain Intake Note: [place] [facility] abdominal pain. Patient c/o; reports lower abdominal pain, reports had vomiting on 03/03/24. 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 He went to the ER last 03/03/2024 because of abdominal pain. He describes this as mostly in the area just above his umbilicus. He says that the pain went away after he was given pain medications in the ER and he was discharged that same night. He has not had any recurrence since then. He describes a similar episode about 3-4 months ago as well. He describes some nausea and a little bit of vomiting He had a CAT scan done in the ER showing a gallstone that appeared to be impacted at the neck. However, there were no signs of inflammation. [facility] Medical History (Updated 03/05/24 @ 08:58 by Castro Lindsay MD) Gallstone Surgical History No pertinent past surgical history Family History Other Family history unknown Social History Alcohol intake: current Alcohol type: beer and wine Review of Systems Const Denies chills and Denies fever(s) Card Denies chest pain, Denies dyspnea and Denies dyspnea on exertion Resp Denies cough, Denies dyspnea and Denies dyspnea on exertion GI Denies hematochezia and Denies change in bowel habits Denies hematuria and Denies difficulty urinating Musc Denies back pain and Denies limited range of motion Neuro Denies focal weakness and Denies convulsions Psych Denies depression and Denies mood swings Physical Exam Vital Signs: BMI result Body Mass Index 32.0 Const General: comfortable and no acute distress Orientation/consciousness: patient oriented x3 Neck Neck: Yes no lymphadenopathy Resp Auscultation: clear to auscultation bilaterally Cardio Rhythm: regular rhythm GI Palpation (GI): Soft to palpation, nontender and no guarding Neuro General: patient oriented x3 Assessment & Plan Assessment & Plan (1) Gallstone: Code(s): K80.20 - Calculus of gallbladder without cholecystitis without obstruction Category: Medical Plan: He was in the ER 2 days ago does have pain on the area just above the umbilicus. His CAT scan showed a gallstone 1.5 cm to seemed to be at the neck of the gallb ladder. He says his pain resolved that time in the ER. He has had no further episodes since then. Review of his CT scan does not show any other pathology. He states that he has had 2 episodes of this same pain in the past 4 months. I therefore had a long discussion with him about the option of proceeding with laparoscopic cholecystectomy and possible open cholecystectomy for this gallstone. I described the risks including but not limited to bleeding, infections, injury to other organs including bowel, liver and the bile ducts, retained stones, bile leak, as well as the benefits and alternatives. I explained to him that there is no guarantee that his symptoms are solely due to his gallstones He says that he wants to proceed as he does not want any similar episode in the future. His LFTs were within normal. Coding Level of Care Code New Pt Level 3 (41835) Diagnoses Gallstone K80.20
== END 2024-03-05 08:55 | disposition home or self-care (01) ==
PROVIDERS: PCP Internal Medicine; Visit Provider Surgery
DX: K80.20 Calculus of gallbladder without cholecystitis without obstruction (principal)
CPT/HCPCS: 99203

== ENCOUNTER → 2024-03-05 08:21 | Outpatient (BNVA) | payer OTHER, SELFPAY | PROVIDERS: PCP Internal Medicine; Visit Provider Surgery ==

== ENCOUNTER 2024-03-20 08:45 | Day surgery (SDC) | payer BC, SELFPAY ==
[2024-03-17 10:37] VITALS: BMI 32.0
[2024-03-20] VITALS (7 sets, daily range): BP systolic 112–145; BP diastolic 68–99; PULSE 61–83; RESP 16–18; TEMP 35.8–36.8; O2SAT 90–97; BMI 29.4
[2024-03-20] MEDS: Lactated Ringers 1,000 ML 80 ML IVCONT (09:12)
--- NOTE | 2024-03-20 10:10 | HO.ANESPROP2 ---
HPI - Anesthesia Eval Consult details Narrative: 48 yo M presenting for laparoscopic cholecystectomy PMFSH Active Problems Active Problems: All Active Problems Gallstone (Acute) Past Medical History Medical History (Updated 03/05/24 @ 08:58 by Castro Lindsay MD) Gallstone Family History Family History Other Family history unknown Family history of problems with anesthesia: No Surgical History Surgical History (Updated 03/17/24 @ 10:36 by Sonia Kearns RN) H/O colonoscopy History of Problems with Anesthesia: No Social History Social History Alcohol intake: current Alcohol type: beer and wine Patient Tobacco Use Status: Never used Tobacco Use of substances other than those prescribed or required for medical reasons: No Are you DNR?: No Advance Directives: No Advance Directives Information Provided: Yes Meds Allergies Allergy/AdvReac Type Severity Reaction Status Date / Time No Known Allergies Allergy Verified 03/20/24 09:09 Active Medications: Current Medications Lactated Ringer's (Lr) 1,000 mls @ 80 mls/hr IVCONT .[id number] PEDRO PABLO Last Admin: 03/20/24 09:12 Dose: 80 mls/hr Exam Exam Date and Time: March 20, 2024 1005 Height,Weight and Vital Signs: Height 6 ft 3 in Weight 106.594 kg Last Vital Signs Temp 96.4 F L 03/20/24 08:48 Pulse 61 03/20/24 08:48 Resp 16 03/20/24 08:48 BP 112/68 03/20/24 08:48 Pulse Ox 97 03/20/24 08:48 O2 Del Method Room Air 03/20/24 08:48 Airway Mallampati Class: II TM Dist: >3cm Neck ROM: Full Loose/Missing/Broken Teeth: No (patient denies any loose or broken teeth) Heart: S1S2 Lungs: CTAB Assessment and Plan Assessment Anesthesia Assessment: Anesthesia Plan Discussed and Chart Reviewed Final Anesthetic Review Family History of Problems with Anesthesia: No History of Problems with Anesthesia: No NPO: Yes ASA Class: I Final Preanesthetic Review: No Changes in Pt Med Stat, Meds/Allgs Chart Reviewed, Consent Obtained/Reviewed and Anes Risks/Benef Reviewed Patient Risk: Low Procedure Risk: Low Anesthetic Plan Anesthetic Plan: GA and Agree w/ Assess. and Plan Disposition: Standard PACU
--- NOTE | 2024-03-20 10:24 | MHC.SHP ---
Pre-Procedural Eval Section A - 24 Hr Update-Section A only Date of Service: 03/20/24 The patient is an INPATIENT: No Changes since office visit: Yes Cold of Flu in the past 2 weeks, Yes New Medical Problems, Yes Changes in Medication and Yes Patient answered all questions The patient has been examined within 24 hours of the surgical procedure. The History & Physical has been completed within 30 days and I have reviewed it.: Yes Section B - Complete if H&P > 30 days Chief Complaint: Calculus of gallbladder without cholecystitis Allergies: Allergies Allergy/AdvReac Type Severity Reaction Status Date / Time No Known Allergies Allergy Verified 03/20/24 09:09 Plan I have reviewed the history and physical and performed a pertinent physical examination on my patient. No changes have occurred unless specified. Time Spent With Patient Time: Total time managing care of this patient today ____ minutes.
--- NOTE | 2024-03-20 12:40 | W.PM.OPN ---
Operative Note Operative Note Date of Service: 03/20/24 Narrative: Preop diagnosis: Gallstones with symptoms Postop diagnosis: Chronic cholecystitis with cholelithiasis Procedure: Laparoscopic cholecystectomy, extensive dissection around the gallbladder to chronic cholecystitis Surgeon: Castro Lindsay MD agency sales management assistant: MARLA Whittington The patient is a 48-year-old male who had been to the ER because of right upper quadrant pain and was diagnosed to have gallstones without cholecystitis last month. He was seen in the office and was scheduled to have cholecystectomy in view of his symptoms. He understood the technique of the planned procedure as well as the risks, benefits, and alternatives. He was brought to the operating room. He was placed supine under general anesthesia via endotracheal tube. The abdomen was prepped and draped in the usual sterile fashion. A surgical time-out was done. The patient received Cefotan 2 g IV preoperatively I made a short supraumbilical incision using blade 15. This was carried down through the full-thickness of the skin and subcutaneous fat down to the fascia. The fascia was incised. The peritoneum was entered. Through this incision a Pickard port was introduced. Pneumoperitoneum was introduced to a pressure of 15 mm Hg. From here on the rest of the procedure was done under vision with a 10 mm 0 degree laparoscope. With laparoscopic visualization I inserted a 5/12 mm port in the epigastric area below the subcostal margin. Two 5 mm ports introduced a small incisions with the subcostal margin along the anterior axillary line in the midclavicular line. Graspers were placed through this working ports. The patient was placed in head up and [id number] position. The fundus of the gallbladder was seen. We are able to apply a grasper and this was used to retract the gallbladder cephalad. However, the entire anterior wall of the gallbladder was wrapped in omentum and adhesions. This was suggestive of chronic cholecystitis, as would have been seen with a stone in the neck of the gallbladder noted on the CT scan We therefore had to carefully separate all this can rind using a combination of blunt dissection with the [place] dissector, as well as use of the LigaSure. We had to carefully peel off the thick, chronic inflammatory rind from the gallbladder in the above fashion. This part of the procedure took an extended period of time and the presence of markedly adherent adhesions, and fibrotic changes surrounding the rest of the gallbladder all the way to the neck. We had to proceed gently and at some point, I had to use the L hook cautery to define the anterior border of the gallbladder and separate thickened fibrotic tissue surrounding this Eventually, as able to apply a grasper towards the neck of the gallbladder. I continued to do careful and extensive dissection to carefully separate this rind from the rest of the neck of the gallbladder. I was then able to define the cystic duct. I carefully dissected the duct make sure that this was confluence with the neck of the gallbladder. We had to also clip the cystic history as this started to bleed once we were all this thickened rind from the rest of the gallbladder. I was able to then achieve a critical view of the hepatocystic triangle. I therefore applied a clip on the cystic duct with 2 clips applied distally. The cystic duct was transected with an clips. I used the L hook electrocautery to continue to carefully separate the rest of the thickened fibrotic tissue in the hilum on the inferior edge of the gallbladder all the way to the interface between the gallbladder wall and the liver bed. Once I reached his interface, I used the L hook electrocautery to gently define a plane of dissection between the gallbladder wall and the liver bed. I the gallbladder wall from the liver bed along this plane although this was not well-defined. I continued to do this from a dissection only to the fundus until the entire gallbladder was completely . The gallbladder was retrieved through an endobag through the umbilical incision I reinserted all ports and re-insufflated. I examined the area of dissection including the subhepatic space. There was no evidence of any bleeding or any bile leak. I copiously irrigated as there was note of some bile leak from a tear of the gallbladder wall earlier. I suctioned out the irrigant fluid. Once this was clear, I observed all 4 quadrants. There was no other pathology. There was no evidence of any bowel injury Once hemostasis reconfirmed, I proceeded then desufflated the port sites. I removed all ports under vision with the laparoscope. I removed the umbilical port last I closed the fascia of the umbilical incision with a habhax-xv-pawma stitch of 0 stitch. Skin closure was achieved on all incisions using Polysorb 4-0 subcuticular running sutures. Steri-Strips and dressings were applied. All incisions were infiltrated with Marcaine 0.5% for postop analgesia. The procedure was then completed The patient tolerated the procedure well. There were no immediate complications. Initial and final counts of sponges and instruments were correct. Estimated blood loss was about 75 cc The patient was extubated without difficulty and transferred to the recovery room with stable vital signs.
[2024-03-20] MEDS: fentaNYL citrate/PF 100 MCG/2 ML VIAL 50 MCG IVPUSH (12:53)
[2024-03-20] MEDS: oxyCODONE HCl Immed Release 5 MG TABLET PO (12:58)
== END 2024-03-20 13:57 | disposition home or self-care (01) ==
PROVIDERS: PCP Internal Medicine; Visit Provider Surgery
PROC: 0FT44ZZ Resection of Gallbladder, Percutaneous Endoscopic Approach (ICD-10-PCS; CPT 47562; principal; 2024-03-20 11:10)
DX: K80.10 Calculus of gallbladder with chronic cholecystitis without obstruction (principal); K82.8 Other specified diseases of gallbladder; K66.0 Peritoneal adhesions (postprocedural) (postinfection)
CPT/HCPCS: 47562; 47579; 88304; 88313; J0131; J1100; J2250; J2405; J2704; J2795; J3010

== ENCOUNTER → 2024-03-20 08:45 | Outpatient (BNV) | payer BC, SELFPAY | PROVIDERS: PCP Internal Medicine; Visit Provider Surgery | DX: K80.20 Calculus of gallbladder without cholecystitis without obstruction (principal) | CPT/HCPCS: 47562 ==

== ENCOUNTER 2024-04-09 10:57 | Outpatient (AMB) | payer BC, SELFPAY ==
--- NOTE | 2024-04-09 10:58 | A.OFFVIS_ITS ---
Intake Visit Reasons: S/P lap gibran Intake Note: This patient presents for a post-op assessment status post laparoscopic cholecystectomy. Patient c/o; reports no complaints pertaining to surgery. 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 He tolerated procedure well. He says he currently feels well overall. He denies any GI complaints. PFSH Medical History Gallstone Surgical History Hx laparoscopic cholecystectomy (~03/20/24) H/O colonoscopy Family History Other Family history unknown Social History Alcohol intake: current Alcohol type: beer and wine Patient Tobacco Use Status: Never used Tobacco Review of Systems Const Denies chills and Denies fever(s) Card Denies chest pain, Denies dyspnea and Denies dyspnea on exertion Resp Denies cough, Denies dyspnea and Denies dyspnea on exertion GI Denies hematochezia and Denies change in bowel habits Denies hematuria and Denies difficulty urinating Musc Denies back pain and Denies limited range of motion Neuro Denies focal weakness and Denies convulsions Psych Denies depression and Denies mood swings Physical Exam Const General: comfortable and no acute distress Eyes Other: Nonicteric GI Other: All incisions are clean well healed Palpation (GI): Soft to palpation, not firm and nontender Assessment & Plan Assessment & Plan (1) Gallstone: Code(s): K80.20 - Calculus of gallbladder without cholecystitis without obstruction Category: Medical Plan: Status post laparoscopic cholecystectomy. He is doing very well. All incisions are well healed. He was advised to avoid lifting more than 20 lb for about 1-2 more weeks He can otherwise follow up on a p.r.n. basis. Coding Level of Care Code Global (37336) Diagnoses Gallstone K80.20
== END 2024-04-09 11:19 | disposition home or self-care (01) ==
PROVIDERS: PCP Internal Medicine; Visit Provider Surgery
DX: K80.20 Calculus of gallbladder without cholecystitis without obstruction (principal)
CPT/HCPCS: 99024

== ENCOUNTER → 2024-04-09 10:57 | Outpatient (BNVA) | payer BC, SELFPAY | PROVIDERS: PCP Internal Medicine; Visit Provider Surgery ==

== ENCOUNTER 2024-04-16 10:40 | Outpatient (REF) | payer BC, SELFPAY ==
[2024-04-16 10:44] LABS: MANUAL DIFF FLAG NO
[2024-04-16 10:48] LABS: Appearance Urine Clear; Color Urine Yellow; Glucose Urine UA Negative (Negative); Leukocyte Esterase Urine Negative (Negative); Nitrite Urine Negative (Negative); Urine Blood Negative (Negative); Urine Ketones Negative (Negative); Urine Protein Negative (Neg-Trace)
[2024-04-16 10:50] LABS: Basophils Percent Auto 0.8 % (0-2); Eosinophils Absolute Auto 0.1 X10*3/uL (0.0-0.4); Eosinophils Percent Auto 1.7 % (0-4); Hematocrit 42.3 % (42.0-52.0); Hemoglobin 14.4 g/dl (14.0-18.0); Imm Gran Abs Auto 0.01 X10*3/uL (0.00-0.03); Imm Gran Pct Auto 0.2 % (0.0-0.4); Lymphocytes Absolute Auto 1.4 X10*3/uL (1.2-4.9); Lymphocytes Percent Auto 26.2 % (20-40); Mean Corpuscular Hemoglobin 29.4 pg (27.0-33.0); Mean Corpuscular Volume 86.5 fL (80.0-98.0); Mean Platelet Volume 10.3 fL (9.4-12.4); Monocytes Absolute Auto 0.4 X10*3/uL (0.1-1.2); Monocytes Percent Auto 8.4 % (2-11); Neutrophils Absolute Auto 3.3 x10*3/uL (2.0-8.3); Neutrophils Percent Auto 62.7 % (45-73); Platelet Count 286 X10*3/uL (160-400); Red Blood Count 4.89 X10*6/uL (4.60-5.80); Red Cell Distribution Width 12.6 % (11.0-16.0); White Blood Count 5.2 X10*3/uL (4.8-10.8)
[2024-04-16 10:51] LABS: Bacteria Urine None Seen (None Seen); Hyaline Casts Urine 0-2 /LPF (0-2); RBC Urine 0-2 /HPF (0-2); Squamous Epithelial Cell Urine 0-2 /HPF (0-2); WBC Urine 0-5 /HPF (0-5)
[2024-04-16 11:24] LABS: Alanine Aminotransferase 22 U/L (0-40); Albumin Level 4.2 g/dL (3.5-5.0); Alkaline Phosphatase 57 U/L (39-117); Anion Gap 10 (12-20); Aspartate Amino Transferase 24 U/L (5-37); Bilirubin Total 1.5 mg/dL (0.0-1.0); Blood Urea Nitrogen 16 mg/dL (9-16); Calcium 9.1 mg/dL (8.4-10.2); Carbon Dioxide 26 mmol/L (22-29); Chloride 108 mmol/L (96-108); Cholesterol 153 mg/dL (<200); Estimated Glomerular Filt Rate > 60; Glucose Fasting 93 mg/dL (60-99); HDL Cholesterol 38 mg/dL (>40); LDL Cholesterol Calculated 95 mg/dL (<100); Potassium 3.7 mmol/L (3.3-5.1); Sodium 140 mmol/L (135-145); Triglycerides 104 mg/dL (<150)
== END 2024-04-16 10:41 | disposition home or self-care (01) ==
LOC: HO.LNP 10:40
PROVIDERS: Visit Provider Internal Medicine
DX: Z00.00 Encounter for general adult medical examination without abnormal findings (principal); Z12.5 Encounter for screening for malignant neoplasm of prostate
CPT/HCPCS: 80053; 80061; 81001; 84153; 85025

== ENCOUNTER 2025-04-05 07:33 | Day surgery (SDC) | payer BC, SELFPAY ==
--- OUTSIDE RECORDS SUMMARY | 2025-02-24 17:00 | XMS_ITS | Patient Health Record ---
Author Organization [facility] Address [address] [place] [address] Care Team Providers Care Refrigerator Crater Name Role Phone Etienne Thompson MD Primary Care Provider Unavai Daryl Martell Unavailable [phone] Allergies No Known Allergies Reason For Referral Referral Organization [facility] Referring Provider First Name Daryl Referring Provider Last Name Rubén Referring Provider Speciality Gastroente rology Referred Organization [facility] Referred Provider Daryl Montana Referred Address [address] [facility],[address],[place], [place],[address], Referred Provider Specialty Gastroentero logy Referral Priority Routine Medications Medication SIG (Take, Route, Frequency, Duration) Notes Start Date End Date Status Escitalopram Oxalate 10 MG Oral for 30 Days Active Social History Tobacco Use: Social History Observation Description Date Details (start date - stop date) Never Smoker NA - NA Tobacco Use/Smoking Question Answer Notes Patient is a nonsmoker Alcohol Screen Question Answer Notes Did you have a drink containing alcohol in the p ast year? No Points 0 Interpretation Negative Section Notes: Nonsmoker; occasional alcoho l Nonsmoker; occasional alcoho l Problems Problem Type SNOMED Code ICD Code Onset Dates Problem Status W/U Status Risk Notes Problem Colon cancer screening (Z12.11) Active confirmed Problem Preprocedural examination (529173545520494) Preprocedural examination (Z01.818) Active confirmed Problem Family History of Cancer of Colon (Situation) (796793559) Family history of colon cancer (Z80.0) Active confirmed Problem [id number] Heme + stool (R19.5) Active confirmed Vital Signs Blood pressure diastolic 77 mm Hg 01/12/2025 Height 75 in 01/12/2025 Blood pressure systolic 111 mm Hg 01/12/2025 Weight 262 lbs 01/12/2025 BMI 32.74 kg/m2 01/12/2025 Procedures Procedure Date Ordered Date Performed Result Body Sit e COLONOSCOPY 01/12/2025 N/A Encounters Encounter Location Date Provider Diagnosis [facility] [address] [place] [address] 01/12/2025 Daryl Montana Colon cancer screeni ng Z12.11 ; Preprocedural examination Z01.818 and Family history of colon cancer Z80.0 Assessments Encounter Date Diagnosis (ICD Code) Assessment Notes Treatment Notes Treatment Clinical Notes Section Notes 01/12/2025 Colon cancer screening (ICD-10 - Z12.11) Overall, Jesus appears quite well. He is not having any new or worrisome GI complaints. Given his last colonoscopy being over 7 years ago, his age over 48, and his family history of his grandmother having had colon cancer at a relatively early age, I did recommend a follow-up colonoscopy for further screening purposes. We did review the rationale for this in regard to colon cancer prevention. Full consent has been obtained for this, including risks of bleeding and perforation. The procedure will be done with monitored anesthesia care. Jesus was comfortable with this plan. Thank you again for allowing me to participate in Jesus's care. I shall continue to keep you advised of his progress. 01/12/2025 Preprocedural examination (ICD-10 - Z01.818) Overall, Jesus appears quite well. He is not having any new or worrisome GI complaints. Given his last colonoscopy being over 7 years ago, his age over 48, and his family history of his grandmother having had colon cancer at a relatively early age, I did recommend a follow-up colonoscopy for further screening purposes. We did review the rationale for this in regard to colon cancer prevention. Full consent has been obtained for this, including risks of bleeding and perforation. The procedure will be done with monitored anesthesia care. Jesus was comfortable with this plan. Thank you again for allowing me to participate in Jesus's care. I shall continue to keep you advised of his progress. 01/12/2025 Family history of colon cancer (ICD-10 - Z80.0) Overall, Jesus appears quite well. He is not having any new or worrisome GI complaints. Given his last colonoscopy being over 7 years ago, his age over 48, and his family history of his grandmother having had colon cancer at a relatively early age, I did recommend a follow-up colonoscopy for further screening purposes. We did review the rationale for this in regard to colon cancer prevention. Full consent has been obtained for this, including risks of bleeding and perforation. The procedure will be done with monitored anesthesia care. Jesus was comfortable with this plan. Thank you again for allowing me to participate in Jesus's care. I shall continue to keep you advised of his progress. Plan Of Treatment Pending Test Test Name Order Date COLONOSCOPY 01/12/2025 Future Test Test Name Order Date COLONOSCOPY 06/11/2017 Next Appt Details Provider Name:Daryl Montana , 04/05/2025 09:40:00 AM, [address] [place] [address] , [place], [place], [phone], Insurance Providers Payer Name Payer Address Payer Phone Subscriber Number Group Number Insured Name Patient Relationship to Insured Coverage Start Date Coverage End Date O [email or web address] [address] [place] [address] [id number] Self - patient is the insured Medical (General) History Medical History History ICD Code Denies SD,DM,CVA,Lung disease,renal dise ase Anxiety Negative colonoscopy in August 2017 fo r evaluation of heme positive stool. Surgical History Surgery Date(Month/Year) Cholecystectomy for gallstones [address] Lindsay
[2025-04-01 13:40] VITALS: BMI 32.7
--- NOTE | 2025-04-02 08:21 | HO.ANESPROP2 ---
HPI - Anesthesia Eval Consult details Narrative: 49yo M for Colonoscopy PMFSH Active Problems Active Problems: All Active Problems Gallstone (Acute) Past Medical History Medical History Anxiety Gallstone Family History Family History Other Family history unknown Family history of problems with anesthesia: No Surgical History Surgical History Hx laparoscopic cholecystectomy (~03/20/24) H/O colonoscopy History of Problems with Anesthesia: No Social History Social History Are you a primary resident caregiver to a significant other at home: No Do you presently have visiting nurse or other home services: No Alcohol intake: current Alcohol type: beer and wine Patient Tobacco Use Status: Never used Tobacco Have you been hit, kicked, punched, or otherwise hurt by someone within the past year? If so, by whom?: No Are you DNR?: No Advance Directives: No Advance Directives Information Provided: Yes Poor oral hygiene: No Meds Allergies Allergy/AdvReac Type Severity Reaction Status Date / Time No Known Allergies Allergy Verified 04/05/25 07:48 Home Medications ?Medication ?Instructions ?Recorded ?Confirmed ?Last Taken ?Type escitalopram oxalate 10 mg tablet 10 mg PO DAILY 04/01/25 04/01/25 Unknown History Exam Height,Weight and Vital Signs: Height 6 ft 3 in Weight 118.841 kg Assessment and Plan Assessment Anesthesia Assessment: Chart Reviewed Final Anesthetic Review Family History of Problems with Anesthesia: No History of Problems with Anesthesia: No
[2025-04-05 07:46] VITALS: BMI 32.3
[2025-04-05] MEDS: Lactated Ringers 1,000 ML 100 ML IVCONT (07:50)
--- NOTE | 2025-04-05 07:52 | P.CONAN_ITS ---
FORMERLY [facility], [facility] Active Problems Active Problems: All Active Problems Gallstone (Acute) Past Medical History Medical History Anxiety Gallstone Functional capacity: independent ambulation Family History Family History Other Family history unknown Family history of problems with anesthesia: No Surgical History Surgical History Hx laparoscopic cholecystectomy (~03/20/24) H/O colonoscopy History of Problems with Anesthesia: No Social History Social History Are you a primary pharmacy care coordinator to a significant other at home: No Do you presently have visiting nurse or other home services: No Alcohol intake: current Alcohol type: beer and wine Patient Tobacco Use Status: Never used Tobacco Have you been hit, kicked, punched, or otherwise hurt by someone within the past year? If so, by whom?: No Are you DNR?: No Advance Directives: No Advance Directives Information Provided: Yes Poor oral hygiene: No Meds Allergies Allergy/AdvReac Type Severity Reaction Status Date / Time No Known Allergies Allergy Verified 04/05/25 07:48 Active Medications: Current Medications Lactated Ringer's (Lr) 1,000 mls @ 100 mls/hr IVCONT .Q10H PEDRO PABLO Sodium Biphosphate/Sodium Phosphate (Sodium Phosphate,Henry-Dibasic 133 Ml Enema) 133 ml CA ONCE PRN PRN Reason: Poor Colonoscopy Prep Results Home Medications ?Medication ?Instructions ?Recorded ?Confirmed ?Last Taken ?Type escitalopram oxalate 10 mg tablet 10 mg PO DAILY 04/0104/01/25 Unknown History Exam Height,Weight and Vital Signs: Height 6 ft 3 in Weight 117.299 kg Airway Mallampati Class: II TM Dist: >3cm Neck ROM: Full Heart: RRR Lungs: CTA Assessment and Plan Assessment Anesthesia Assessment: Anesthesia Plan Discussed Final Anesthetic Review Family History of Problems with Anesthesia: No History of Problems with Anesthesia: No NPO: Yes ASA Class: II Final Preanesthetic Review: Meds/Allgs Chart Reviewed, Consent Obtained/Reviewed and Anes Risks/Benef Reviewed Patient Risk: Low Procedure Risk: Low Anesthetic Plan Anesthetic Plan: MAC: Disposition: Standard PACU
[2025-04-05 07:57] VITALS: BP 118/78; PULSE 75; RESP 18; TEMP 36.6; O2SAT 97
[2025-04-05 09:31] VITALS: BP 94/48; PULSE 61; RESP 16; TEMP 36.1; O2SAT 94
--- NOTE | 2025-04-05 09:38 | PM.OP ---
Brief Operative Note Date of Service: 04/05/25 Pre-op diagnosis: Screening Post-op diagnosis: other (Diverticulosis) Procedure: Colonoscopy to the cecum and TI Surgeon: Daryl Montana MD Anesthesia: MAC Was an Electric Scoop Operator used for this Procedure?: No Estimated blood loss (mL): 0 Pathology: none sent Condition: stable Disposition: PACU
[2025-04-05 09:46] VITALS: BP 95/62; PULSE 69; RESP 16; O2SAT 94
[2025-04-05 10:01] VITALS: BP 104/74; PULSE 58; RESP 16; TEMP 36.2; O2SAT 95
--- NOTE | 2025-04-05 10:11 | OP_ITS ---
DATE OF SERVICE: 04/05/2025 SURGEON: Daryl Montana MD INDICATIONS: The patient presents for evaluation of colorectal cancer screening and family history of colon cancer. Full consent has been obtained from him for this, including risks of bleeding and perforation. PREOPERATIVE DIAGNOSIS: POSTOPERATIVE DIAGNOSIS: PROCEDURE PERFORMED: Colonoscopy to the cecum and terminal ileum. ESTIMATED BLOOD LOSS: COMPLICATIONS: ANESTHESIA: Medication used, monitored anesthesia care. ASSISTANTS: SPECIMENS: PREOPERATIVE DIAGNOSES: Colorectal cancer screening and family history of colon cancer. POSTOPERATIVE DIAGNOSES: Colorectal cancer screening and family history of colon cancer, diverticulosis, and internal hemorrhoids. DESCRIPTION OF PROCEDURE: The patient was placed in the left lateral decubitus position. The digital rectal exam revealed no abnormalities. The Olympus video pediatric colonoscope was entered into the rectum and advanced easily to the cecum. Once in the cecum, I did identify normal-appearing cecal pouch with appendiceal orifice and a normal-appearing ileocecal valve. The terminal ileum was cannulated and appeared normal. Scope was withdrawn back in the colon. The entire cecum and ileocecal valve appeared normal. The scope was slowly withdrawn assessing all mucosal surfaces carefully. Preparation was excellent. I did not visualize any sign of polyps, colitis, nor angiodysplasia. There was a mild amount of sigmoid diverticulosis. In the rectum, the scope was retroflexed visualizing the proximal stomach carefully, which appeared normal other than some internal hemorrhoids. The scope was straightened and withdrawn from the patient. He tolerated the procedure well and was returned to the recovery area in stable condition. IMPRESSION: 1. Diverticulosis. 2. Internal hemorrhoids. PLAN: Given today's negative exam and family history of colon cancer in a grandmother, I would recommend a repeat colonoscopy in 7 years for further screening as opposed to 5 if he had a first-degree relative or 10 if there was no family history at all. He will otherwise see me on a p.r.n. basis. MD LIBRA López/BRITNEY / [phone]
--- NOTE | 2025-04-05 12:32 | HO.ANESPROP2 ---
FORMERLY [facility] Active Problems Active Problems: All Active Problems (Updated 04/01/25 @ 13:37 by Demi Escobar RN) Gallstone (Acute) Past Medical History Medical History Anxiety Gallstone Functional capacity: independent ambulation Family History Family History Other Family history unknown Family history of problems with anesthesia: No Surgical History Surgical History Hx laparoscopic cholecystectomy (~03/20/24) H/O colonoscopy History of Problems with Anesthesia: No Social History Social History Are you a primary care program director to a significant other at home: No Do you presently have visiting nurse or other home services: No Alcohol intake: current Alcohol type: beer and wine Patient Tobacco Use Status: Never used Tobacco Have you been hit, kicked, punched, or otherwise hurt by someone within the past year? If so, by whom?: No Are you DNR?: No Advance Directives: No Advance Directives Information Provided: Yes Poor oral hygiene: No Meds Allergies Allergy/AdvReac Type Severity Reaction Status Date / Time No Known Allergies Allergy Verified 04/05/25 07:48 Home Medications ?Medication ?Instructions ?Recorded ?Confirmed ?Last Taken ?Type escitalopram oxalate 10 mg tablet 10 mg PO DAILY 04/01/25 04/01/25 Unknown History Exam Height,Weight and Vital Signs: Height 6 ft 3 in Weight 117.299 kg Last Vital Signs Temp 97.1 F 04/05/25 10:01 Pulse 58 04/05/25 10:01 Resp 16 04/05/25 10:01 BP 104/74 04/05/25 10:01 Pulse Ox 95 04/05/25 10:01 O2 Del Method Room Air 04/05/25 10:01 Airway Mallampati Class: II TM Dist: >3cm Neck ROM: Full Heart: RRR Lungs: CTA Assessment and Plan Final Anesthetic Review Family History of Problems with Anesthesia: No History of Problems with Anesthesia: No NPO: Yes ASA Class: III Final Preanesthetic Review: Meds/Allgs Chart Reviewed, Consent Obtained/Reviewed and Anes Risks/Benef Reviewed Patient Risk: Low Procedure Risk: Low Anesthetic Plan Anesthetic Plan: MAC: Disposition: Standard PACU
== END 2025-04-05 10:15 | disposition home or self-care (01) ==
PROVIDERS: PCP Internal Medicine; Visit Provider Internal Medicine
PROC: 0DJD8ZZ Inspection of Lower Intestinal Tract, Via Natural or Artificial Opening Endoscopic (ICD-10-PCS; CPT 45378; principal; 2025-04-05 08:30)
DX: Z12.11 Encounter for screening for malignant neoplasm of colon (principal); Z80.0 Family history of malignant neoplasm of digestive organs; K57.30 Diverticulosis of large intestine without perforation or abscess without bleeding; K64.8 Other hemorrhoids; F41.9 Anxiety disorder, unspecified; Z79.899 Other long term (current) drug therapy; Z90.49 Acquired absence of other specified parts of digestive tract
CPT/HCPCS: 45378; J2003; J2704

== ENCOUNTER 2025-04-23 11:53 | Outpatient (REF) | payer BC, SELFPAY ==
--- OUTSIDE RECORDS SUMMARY | 2025-01-11 06:44 | XMS_ITS ---
Author Organization Etienne Thompson MD Address [address] [place] [phone] Care Team Providers Care Strategic Sourcing Manager Name Role Phone Etienne Thompson Primary Care Provider REASON FOR VISIT refill Medications Medication SIG (Take, Route, Frequency, Duration) Notes Start Date End Date Status Escitalopram Oxalate 10 MG 1 tablet Oral ly Once a day for 30 days 09/21/2024 Active Encounters Encounter Location Date Provider Diagnosis Etienne Thompson MD [address] [place] [phone] 01/11/2025 Etienne Thompson Anxiety, generalized F41.1 Assessments Encounter Date Diagnosis (ICD Code) Assessment Notes Treatment Notes Treatment Clinical Notes Section Notes 01/11/2025 Anxiety, generalized (ICD-10 - F41.1) Plan Of Treatment Medication Medication Name Sig Start Date Stop Date Notes Escitalopram Oxalate 10 MG 1 tablet Oral ly Once a day for 30 days 09/21/2024 Next Appt Details Provider Name:Etienne buckner, 05/03/2025 01:00:00 PM, [address] [facility], Suite [facility], [place], [place], [phone], Progress Notes * Meir ROWELL ADOB: (49 yo M)Acc No.[id number]:01/11/2025 Patient: Meir MAZARIEGOS :1975 A ge:49 Y S ex:Male Address:[address] [place] [id number] * Refills Refill Escitalopram Oxalate Tablet, 10 MG, Orally, 30, 1 tablet, Once a day, 30 days, Refills=3 * true * Date: Generated for Deborah blanc/Mary/Robelsmitting on: 0 04/23/2025 11:54 AM EDT
[2025-04-23 11:56] LABS: MANUAL DIFF FLAG NO
[2025-04-23 11:59] LABS: Hematocrit 44.3 % (42.0-52.0); Hemoglobin 15.0 g/dl (14.0-18.0); Imm Gran Abs Auto 0.01 X10*3/uL (0.00-0.03); Imm Gran Pct Auto 0.2 % (0.0-0.4); Lymphocytes Absolute Auto 1.6 X10*3/uL (1.2-4.9); Mean Corpuscular HGB Conc 33.9 g/dl (31.0-36.0); Mean Corpuscular Hemoglobin 29.7 pg (27.0-33.0); Mean Corpuscular Volume 87.7 fL (80.0-98.0); NRBC Abs Auto 0.000 X10*3/uL (0.0-0.012); NRBC Pct Auto 0.0 /100WBC (0.0-0.2); Platelet Count 248 X10*3/uL (160-400); Red Blood Count 5.05 X10*6/uL (4.60-5.80); White Blood Count 6.1 X10*3/uL (4.8-10.8)
[2025-04-23 12:00] LABS: Appearance Urine Clear; Glucose Urine UA Negative (Negative); PH 6.5 (5.0-9.0); Specific Gravity - Urine 1.025 (1.005-1.025)
[2025-04-23 12:20] LABS: Alanine Aminotransferase 24 U/L (0-40); Albumin Level 4.5 g/dL (3.5-5.0); Alkaline Phosphatase 54 U/L (39-117); Anion Gap 9 (12-20); Aspartate Amino Transferase 31 U/L (5-37); Blood Urea Nitrogen 22 mg/dL (9-16); Calcium 9.0 mg/dL (8.4-10.2); Carbon Dioxide 29 mmol/L (22-29); Chloride 107 mmol/L (96-108); Cholesterol 175 mg/dL (<200); Estimated Glomerular Filt Rate > 60; HDL Cholesterol 42 mg/dL (>40); Potassium 3.8 mmol/L (3.3-5.1); Sodium 141 mmol/L (135-145); Total Protein 7.2 g/dL (6.5-8.0); Triglycerides 112 mg/dL (<150)
[2025-04-23 12:36] LABS: PSA,Total (Free>4and<10) 0.29 ng/mL (0.00-4.00)
== END 2025-04-23 11:54 | disposition home or self-care (01) ==
LOC: HO.LNP 11:53
PROVIDERS: Visit Provider Internal Medicine
DX: Z00.00 Encounter for general adult medical examination without abnormal findings (principal); Z12.5 Encounter for screening for malignant neoplasm of prostate; Z13.6 Encounter for screening for cardiovascular disorders
CPT/HCPCS: 80053; 80061; 81001; 84153; 85025